=== PATIENT | female | born 1975 | race Caucasian/White ===

== ENCOUNTER → 2016-09-07 | Outpatient (CLI) | payer BC | LOC: MW.DI 10:26 | PROVIDERS: ATTEND Physician Assistant | DX: M25.511 Pain in right shoulder (principal); Z53.9 Procedure and treatment not carried out, unspecified reason ==

== ENCOUNTER → 2016-09-21 | Outpatient (CLI) | payer BC ==
[~2016-09-21] MED LIST: Gadobutrol 7.5 mMOL/7.5 ML SDV IVPUSH STA; Iopamidol 612 MG/ML 50 ML SDV IARTIC STA
--- NOTE | 2016-09-22 10:04 | MR ---
EXAMINATION: MR arthrogram of the right shoulder HISTORY: Fall, pain COMPARISON: None TECHNIQUE: Multiplanar and multisequence images obtained through the right shoulder following the in tra-articular administration of Gadavist. FINDINGS: The acromion is concave with a small hook. Mild acromioclavicular osteoarthritic changes a re noted. The distal supraspinatus and infraspinatus tendons appear intact. There is however mildly increased signal within the distal supraspinatus tendon. The long head biceps tendon is present with in the bicipital groove. The overlying subscapularis tendon appears intact. The teres minor tendon a ppears normal. The articular surfaces appear preserved. Possible slight tear of the posterior superi or glenoid labrum. No abnormal bone marrow signal. The articular surfaces appear grossly preserved. IMPRESSION: 1. Possible slight tear of the posterior to superior labrum. 2. Mild distal supraspinatus tendinopathy.
--- NOTE | 2016-09-22 16:30 | CR ---
EXAMINATION: Fluoro guided right shoulder arthrogram. HISTORY: Pain. TECHNIQUE/PROCEDURE: Written informed consent was obtained from the patient . The site of the anterior rotator interval is marked under fluoroscopy. Under aseptic conditions usin g 1% lidocaine as local anesthesia 25-gauge needle was introduced into the joint space. A small amou nt of contrast test dose was injected which freely flowed into the joint space. Afterwards, 10 cc o f cocktail consisting of saline, gadolinium and local lidocaine including CT contrast was administer ed without difficulty. There was no passage of the contrast into the subacromial space. Most of the contrast is seen within the joint space and sub coracoid bursal region. IMPRESSION: Successful Fluoro guided right shoulder arthrogram without evidence for high-grade rotat or cuff tear.
== END | disposition home or self-care (01) ==
LOC: MW.DI 10:00
PROVIDERS: ATTEND Physician Assistant
DX: M25.511 Pain in right shoulder (principal); Z53.9 Procedure and treatment not carried out, unspecified reason; M75.81 Other shoulder lesions, right shoulder
CPT/HCPCS: 20610; 23350; 73222; A9585; Q9967

== ENCOUNTER 2025-05-28 17:42 | Emergency (ER) | payer MEDICAID ==
[2025-05-28 18:25] LABS: BASOPHILS ABSOLUTE AUTO 0.03 K/uL (0.00-0.20); BASOPHILS PERCENT AUTO 0.3 % (0.0-1.0); EOSINOPHILS ABSOLUTE AUTO 0.05 K/uL (0.00-0.45); EOSINOPHILS PERCENT AUTO 0.6 % (0.0-6.0); IMMATURE GRAN ABSOLUTE AUTO 0.01 K/uL (0.00-0.05); IMMATURE GRAN PERCENT AUTO 0.1 % (0.0-0.4); LYMPHOCYTES ABSOLUTE AUTO 2.92 K/uL (1.00-4.80); LYMPHOCYTES PERCENT AUTO 33.8 % (24.0-44.0); MEAN PLATELET VOLUME 9.2 fL (9.4-12.3); MONOCYTES ABSOLUTE AUTO 0.55 K/uL (0.00-0.80); MONOCYTES PERCENT AUTO 6.4 % (0.0-8.0); NEUTROPHILS ABSOLUTE AUTO 5.09 K/uL (1.80-7.70); NEUTROPHILS PERCENT AUTO 58.8 % (41.0-71.0); NRBC ABSOLUTE 0.00 K/uL (0.00-0.02); NRBC PERCENT 0.0 /100WBC (0.0-0.2); PLATELET COUNT,PLT 186 K/uL (150-400); RED BLOOD CELL COUNT 4.53 M/uL (4.10-5.30); WHITE BLOOD CELL COUNT,WBC 8.65 K/uL (3.9-11.3)
[2025-05-28 19:03] LABS: A/G RATIO 0.9 (0.9-1.6); ALANINE AMINOTRANSFERASE,ALT 31 IU/L (14-63); ASPARTATE AMNIOTRANSFERASE,AST 23 IU/L (15-37); BILIRUBIN TOTAL 0.2 mg/dL (0.2-1.0); BLOOD UREA NITROGEN,BUN 8 mg/dL (7.0-18.0); CARBON DIOXIDE,CO2 23.4 mmol/L (21.0-32.0); CHLORIDE,CL 98 mmol/L (98-107); CREATININE 0.8 mg/dL (0.6-1.0); EST CRCL DRUG DOSING (CG) 59.09 mL/min; ETHANOL BLOOD MEDICAL 213 mg/dL; GLUCOSE RANDOM 353 mg/dL (74-106); POTASSIUM,K 3.4 mmol/L (3.5-5.1); PROTEIN TOTAL,TP 7.4 g/dL (6.4-8.2); SODIUM,NA 138 mmol/L (136-145); TSH ULTRASENSITIVE 0.82 uIU/mL (0.36-3.74)
[2025-05-28 19:05] LABS: ESTIMATED GFR 89 mL/min (>60)
[2025-05-28 19:34] VITALS: PULSE 111
[2025-05-28 19:57] VITALS: BP 145/90
[2025-05-28 21:23] LABS: APPEARANCE,URINE CLEAR; GLUCOSE,URINE >=1000 mg/dL (NEGATIVE); OCCULT BLOOD,URINE TRACE-LYSED (NEGATIVE)
[2025-05-28 21:33] LABS: AMPHETAMINES SCREEN, URINE NEGATIVE (CUTOFF=500); BUPRENORPHINE SCREEN,URINE NEGATIVE (CUTOFF=10); METHADONE SCREEN, URINE NEGATIVE (CUTOFF=200); METHAMPHETAMINES SCREEN, URINE NEGATIVE (CUTOFF=500); OXYCODONE SCREEN,URINE NEGATIVE (CUT0FF=100); PCP SCREEN,URINE NEGATIVE (CUTOFF=25); THC SCREEN,URINE 20 NG/ML PRESUMPTIVE POSITIVE (CUTOFF=50)
[2025-05-28 21:34] LABS: EPITHELIAL CELLS,URINE FEW (NONE-FEW)
== END 2025-05-28 21:56 | disposition left against medical advice (07) ==
LOC: MW.ED 17:42
DX: F10.129 Alcohol abuse with intoxication, unspecified (principal); E10.9 Type 1 diabetes mellitus without complications; Z88.8 Allergy status to other drugs, medicaments and biological substances; Z79.4 Long term (current) use of insulin; Z79.899 Other long term (current) drug therapy; Z53.29 Procedure and treatment not carried out because of patient's decision for other reasons
CPT/HCPCS: 36415; 80053; 80143; 80179; 80305; 80307; 81001; 83735; 84443; 85025; 99283; 99284